=== PATIENT | female | born 1940 | race Caucasian/White ===

== ENCOUNTER 2025-06-17 09:38 | Observation (INO) ==
--- NOTE | 2025-06-15 09:48 | Anesthesiology Consultation ---
Date of Service June 15, 2025 Assessment & Plan (1) Encounter for pre-operative examination: - awaiting cardiology ordered echocardiogram and final pre-op determination. - cardiology clearance 06/13/25: "...preoperative cardiac clearance...denies associated chest pain, cough, diaphoresis, dizziness...abnormal EKG...cardiac murmur...intermediate cardiovascular risk (hysterectomy)...over the past 30 days there has been no active cardiovascular conditions...activities above 4 METS...most recent transthoracic echocardiogram on 01/29/2010 demonstrates normal LV chamber size and systolic function with an EF of 60%. 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 Chart Review Chart Review: Pending: Refer to Additional Notes / Consult section and Patient NOT seen in Pre Admission Testing History Surgery Operation Date: 06/17/25 07:30 Proposed Procedures p Robotic assisted Hysterectomy and Bilateral Salpingo-Oophorectomy, Sacral Colpopexy, Possible Mid-Urethral Sling, Cystoscopy - Tye Flanagan MD Height/Weight Height: 5 ft 4.5 in Weight: 64.41 kg Allergies Allergy/AdvReac Type Severity Reaction Status Date / Time methylprednisolone Allergy makes her Verified 06/08/25 12:50 [From Medrol] very drowsy/tired Medications Home Medications Medication Instructions Recorded Confirmed Last Taken artificial tears(hypromellose) 0.3 1 drp ophthalmic (eye) UD PRN Dry 06/08/25 06/08/25 Unknown % eye drops Eyes levothyroxine 112 mcg tablet 112 mcg PO QAM 06/08/25 06/08/25 Unknown multivitamin 1 tab PO QAM 06/08/25 06/08/25 Unknown Past Medical History Medical History (Updated 06/15/25 @ 09:42 by Yasemin Rm PA-C) Dry eyes History of hypothyroidism Hx of gastroesophageal reflux (GERD) no current meds, occasionally occurs Hx of migraines related to menstrual cycle Hx-TIA (transient ischemic attack) "told she's had multiple over the years, seen on imaging, never had to see neurology" Slow to wake up after anesthesia only w/ T&A sx. (when they used ether per pt) Past Surgical History Surgical History History of esophagogastroduodenoscopy (EGD) History of Ravi fundoplication (11/14/14) w/epiglottis repair History of tonsillectomy and adenoidectomy age 9 Hx laparoscopic cholecystectomy (07/09/17) Hx of bilateral cataract extraction 08/2020 Hx of colonoscopy Social History Smoking Status: Never smoker Do You Dip or Chew Tobacco: No Hx Alcohol Use: Yes Alcohol type: wine and hard liquor alcohol intake frequency: holidays/special occasions only Hx Substance Use: No substance use type: does not use Lab Results Anesthesia Preop Results Results Anesthesia Widget: WBC 6.15 K/ul (4.8-10.8) 06/10/25 Hgb 13.1 g/dl (12.0-16.0) 06/10/25 Hct 39.8 % (37.0-47.0) 06/10/25 Plt 192 K/uL (130-400) 06/10/25 Na 142 mmol/L (136-145) 06/10/25 K 3.9 mmol/L (3.5-5.1) 06/10/25 Cl 108 mmol/L (98-107) H 06/10/25 CO2 27 mmol/L (21-32) 06/10/25 BUN 16 mg/dl (6-23) 06/10/25 Creat 0.61 mg/dl (0.6-1.2) 06/10/25 Glucose Level 88 mg/dl (70-99(Fasting)) 06/10/25 Blood Type A Positive 06/10/25 Antibody Screen NEGATIVE 06/10/25 Testing Electrocardiogram Date: 06/03/25 Sinus bradycardia with first degree AV block, rate 58 bpm Marked left axis deviation LVH and ST-T change Possible anteroseptal [place], indeterminate age
--- NOTE | 2025-06-17 05:38 | History & Physical Report ---
Date of Service June 17, 2025 Assessment & Plan (1) Uterovaginal prolapse, incomplete: Plan: Reviewed the severe cystocele, uterine prolapse. She has tried several pessaries and now desires surgery. We reviewed colpocleisis vs transvaginal reconstruction vs robotic surgery. She prefers robotic hysterectomy, BSO, Sacral colpopexy with mesh, and cystoscopy. Risks of infection, bleeding, injury, pain, mesh exposure, incontinence, retention were reviewed. All questions answered. Informed consent signed Present on Admission?: Yes Admission and Anticipated Discharge Date Admission Date: 06/17/2025 Anticipated date of discharge: 06/18/25 History of Present Illness Chief Complaint: prolapse Primary Care Provider: Tye Flanagan MD Loretta Zuñiga has been trying several pessaries which has not completely resolved her prolapse issues. She has tried ring pessaries, but the bladder prolapse will often slide past the pessary. She also had issues with vaginal irritation from the pressure of the larger pessaries (#7 ring). She is currently using a Gelhorn pessary, but the bladder prolapse is still sliding past it. Urinary: Leakage: Urge Has leakage three times Wears pads: no She has occasional sense of incomplete bladder emptying. Prior/current treatment include: none UTI: She states she has had three urinary tract infections in the past year Voiding detail: Daytime frequency: every 2-3 hours Urgency yes Nocturia:3-4 times Hesitancy no Straining no Hematuria no Postvoid dribbling no Postvoid urgency no Manual reduction no Prolapse: She admits a palpable bulge. GI: Bowel habits: normal bowel movement daily She denies fecal incontinence. Prior/ current treatments include: none Allergies Allergy/AdvReac Type Severity Reaction Status Date / Time methylprednisolone Allergy makes her Verified 06/08/25 12:50 [From Medrol] very drowsy/tired Home Medications Medication Instructions Recorded Confirmed Type artificial tears(hypromellose) 0.3 1 drp ophthalmic (eye) UD PRN Dry 06/08/25 06/08/25 History % eye drops Eyes levothyroxine 112 mcg tablet 112 mcg PO QAM 06/08/25 06/08/25 History multivitamin 1 tab PO QAM 06/08/25 06/08/25 History Past Med/Surg History Problem List (Updated 06/17/25 @ 05:36 by Tye Flanagan MD) Uterovaginal prolapse, incomplete Encounter for pre-operative examination Medical History Slow to wake up after anesthesia only w/ T&A sx. (when they used ether per pt) Hx of gastroesophageal reflux (GERD) no current meds, occasionally occurs Hx of migraines related to menstrual cycle Hx-TIA (transient ischemic attack) "told she's had multiple over the years, seen on imaging, never had to see neurology" Dry eyes History of hypothyroidism Surgical History History of esophagogastroduodenoscopy (EGD) Hx of colonoscopy History of Ravi fundoplication (11/14/14) w/epiglottis repair Hx laparoscopic cholecystectomy (07/09/17) Hx of bilateral cataract extraction 08/2020 History of tonsillectomy and adenoidectomy age 9 Social History Smoking Status: Never smoker Second Hand Exposure: Yes (hx growing up); Do You Dip or Chew Tobacco: No; Tobacco Cessation Education Requested by Patient: No Hx Alcohol Use: Yes Alcohol type: wine and hard liquor Hx Substance Use: No Preferred Language: Mauritanian Communication Ability: Effective Vacuum Metalizer Operator Required: No Beliefs That Will Affect Care: None Current Living Situation: Alone Other Information That Helps Us Care for You: No Feels Safe at Home: Yes Safety Concerns: Feels Safe At This Time Assistive Devices: Denture - Upper, Denture - Lower and Glasses Assistive Devices Comment: partial lower denture Review of Systems Review of Systems: All systems reviewed & are unremarkable except as noted in HPI & below Physical Exam Constitutional: WD/WN, vitals as above Eyes: PERRL, conjunctivae normal, anicteric sclerae Neck: trachea midline, no thyromegaly Respiratory: normal respiratory effort, lungs clear to auscultation Cardiovascular: RRR, no murmur, no edema Gastrointestinal (Abdomen): normal bowel sounds, soft, nontender, no hepatosplenomegaly Musculoskeletal: no cyanosis or clubbing, extremities motor strength 5/5 Skin: no rashes, warm and dry Neurologic: patellar DTR's 2+ bilat, sensation intact Psychiatric: A+Ox3, euthymic affect Code Status & VTE Plan VTE Prophylaxis Plan VTE Prophylaxis will be ordered: Yes
[~2025-06-17 09:38] MED LIST: LIDOCAINE 2% 2 ML VIAL/AMP(20MG/ML) INFIL ONE; PROPOFOL IV EMULSION 10 MG/ML 20 ML VIAL IV ONE; ROCURONIUM BROMIDE 10 MG/ML 5 ML VIAL IV ONE
[2025-06-17] MEDS: LR 15ML/HR IV SCH (10:15)
[2025-06-17] MEDS: metroNIDAZOLE 500 MG/100 ML BAG IV SCH (10:30)
[2025-06-17] MEDS ORDERED: PROMETHAZINE HCL 6.25 MG in SODIUM CHLORIDE 0.9% 50 ML IV PRN (10:37)
[2025-06-17] MEDS ORDERED: ONDANSETRON INJ 2 MG/ML 2 ML VIAL IV PRN ×2 (10:37→13:34)
[2025-06-17] MEDS ORDERED: FLUMAZENIL 0.1 MG/1 ML 10 ML VIAL IV PRN (10:37)
[2025-06-17] MEDS ORDERED: NALOXONE HCL 0.4 MG/1 ML VIAL/CARP IV PRN (10:37)
[2025-06-17] MEDS ORDERED: ATROPINE SULFATE 0.1 MG/ML 10ML SYR IV PRN (10:37)
[2025-06-17] MEDS ORDERED: LABETALOL HCL IV 5 MG/ML 20ML IV ONE (11:06)
[2025-06-17] MEDS ORDERED: HYDROmorphone INJ 2 MG/ML SYR/VIAL ONE (11:26)
[2025-06-17] MEDS ORDERED: GLYCOPYRROLATE 0.2 MG/ML VIAL ONE (11:35)
[2025-06-17] MEDS ORDERED: PHENYLEPHRINE 100MCG/ML 5ML SYR ONE (11:41)
[2025-06-17] MEDS ORDERED: PHENYLEPHRINE HCL 10 MG/ML VIAL ONE (11:43)
[2025-06-17] MEDS ORDERED: ONDANSETRON INJ 2 MG/ML 2 ML VIAL ONE ×2 (11:49→12:44)
[2025-06-17] MEDS ORDERED: DEXAMETHASONE SOD INJ 4 MG/ML VIAL ONE (11:49)
[2025-06-17] MEDS ORDERED: KETAMINE HCL 10MG/ML SYR ONE (11:53)
[2025-06-17] MEDS ORDERED: ACETAMINOPHEN 1000 MG/100 ML IV IV ONE (12:03)
[2025-06-17] MEDS ORDERED: SUGAMMADEX SODIUM 200 MG/2 ML VIAL IV ONE ×2 (12:44)
[2025-06-17] MEDS: LIDOCAINE 1%/EPINEPHRINE 1:100,000 50 ML VIAL ONE (12:55)
[2025-06-17] MEDS: BUPIVACAINE LIPOSOME 1.3% 266 MG/20 ML VIAL ONE (12:55)
[2025-06-17] MEDS: BUPIVACAINE 0.5 % 5 MG/1 ML MPF 30ML VIAL ONE (12:55)
[2025-06-17] MEDS: PREMARIN VAG CRM 14 APPLN/30 GM TUBE ONE (13:20)
--- NOTE | 2025-06-17 13:37 | Operative Report ---
Post Operative Report Pre & Post Diagnosis Operation Date: 06/17/25 10:50 Pre-Op Diagnosis: Cystocele, Ureterovaginal Prolapse Post-Op Diagnosis: Cystocele, Ureterovaginal Prolapse, Urethral hypermobility, KIA I identified the patient and participated in the time-out.: Yes Procedure Operation Date: 06/17/25 10:50 Actual Procedures p Robotic Assisted Hysterectomy and Bilateral Salpingo-Oophorectomy, Sacral Colpopexy, Cystoscopy, Mid-Urethral Sling(Bilateral) - Tye Flanagan MD Surgeon Tye Flanagan MD Credit Rating Checker Hina Scruggs PA-C Estimated Blood Loss 30 Findings Consistent with Post-Op Diagnosis grade 3 cystocele, grade 3 uterine prolapse. Normal appearing cervix,uterus, tubes, and ovaries. Normal cystoscopy with excellent efflux of ureters bilaterally. Fluids crystalloid Specimens cervix, uterus, tubes,and ovaries Drains Mahoney catheter Anesthesia Type General Complications none Disposition Accompanied Patient To Recovery: Yes Disposition: Recovery Room Indications symptomatic uterovaginal prolapse, failure of pessary therapy. Description of Procedure After Loretta Zuñiga was correctly identified in the preoperative area, the indications,risks,benefits, and alternatives were reviewed in detail. All questions answered and informed consent was confirmed. Patient was taken to the operating room and given general anesthesia per anesthesia service. She was prepped and draped in the usual sterile fashion. Time out was performed. A Mahoney catheter was placed for clear urine. The cervix was serially dilated and medium cup v-care uterine manipulator was attached. At the umbilicus, an 8 mm incision was made and an 8mm robotic trocar with Optiview was advanced through the incision,past the fascia and peritoneum and into the abdominal cavity without difficulty. CO2 gas was used to insufflate the abdomen. Inspection revealed omental adhesions to the anterior abdominal wall. Two 8mm trocars were placed on the left and two 8mm trocars were placed on the right under direct visualization. The omental adhesions were taken down sharply with excellent hemostasis. Patient was placed in Trendelenburg position to allow the bowel to retract out the pelvis. The robot was docked. The ureters were well visualized bilaterally. The IP ligament was vessel sealed and transected bilaterally. The round ligaments were vessel sealed and transected bilaterally. The bladder was dissected off the cervix. The uterine vessels were dissected from the broad ligament, vessel sealed and transected bilaterally for excellent hemostasis. The colpotomy incision was made following the cervical cup. The cervix, uterus, t ubes, and ovaries were delivered out the vagina and sent to pathology as specimen. The vaginal cuff was closed with 0 V-lock suture in a running fashion in two layers. The bladder was dissected off the anterior vaginal wall for 6 cm distally. The posterior peritoneum was dissected off the posterior vaginal wall for 8 cm distally. The peritoneum overlying was incised. The incision was extended along the right deanna-colic gutter with excellent visualization of the right ureter and rectum. The anterior longitudinal ligament was well visualized below the sacral promontory. The Y mesh was secured to the posterior and anterior vaginal figueroa with 2-0 V- lock suture. The tail end of the y mesh was secured to the anterior longitudinal ligament below the sacral promontory with two interrupted sutures of 0 CVS suture. The peritoneum was closed over the mesh with 2-0 V-lock suture in a running fashion. Excellent hemostasis was confirmed. The robot was undocked and the trocars were removed under direct visualization and the skin incisions were closed with 4-0 Monocryl in a sub-cuticular fashion and dressed with surgical glue. Cystoscopy was performed with a 17 thai 70 deg cystoscope with 250 ml of irrigation fluid. Inspection or the bladder dome, trigone, and urethra revealed no lesions. Excellent efflux of each ureter bilaterally was demonstrated. Crede maneuver did reveal KIA. The Mahoney catheter was reinserted. The vaginal mucosa overlying the mid-urethra was grasped with 2 Allis clamps. The mucosa was infiltrated with 1% lidocaine with epinephrine. A midline vertical incision was made with the scalpel. The edges of the incision were grasped with Allis clamps and the deanna-urethral tissue was dissected sharply bilaterally. The Solyx single incision sling was assembled. The needle introducer was advanced through the incision toward the left pubic rami and into the obturator internus muscle. The other end of the sling was attached to the needle introducer, advanced through the incision toward the right pubic rami and inserted into the right obturator internus muscle. Cystoscopy was repeated with 250 ml of irrigation fluid. No lesions or perforations were visualized in the bladder dome, trigone, and urethra. The Mahoney catheter was reinserted. The incision was closed with 2-0 Vicryl in a running fashion. Excellent hemostasis was confirmed. Inspection of the vagina revealed excellent support, hemostasis, and good closure of the cuff. Estrogen cream was applied to the vagina. All sponge,lap, and needle counts were correct. The patient was awakened, extubated, and sent to recovery in good condition. No qualified resident was available. Hina Scruggs PA-C served as a necessary technical support assistant for patient positioning, draping, retraction, irrigation, robot docking, robot instrument exchange and wound closure. I attest to the content of the Intraoperative Record and any orders documented therein. Any exceptions are noted below.
[2025-06-17] MEDS ORDERED: ARTIFICIAL TEARS OP PRN (13:55)
--- NOTE | 2025-06-17 15:13 | Anesthesiology Progress Note ---
Date of Service June 17, 2025 Anesthesia Post Procedure Vital Signs Vital Signs: Temp Pulse Pulse Resp BP Pulse Ox O2 Del Method 06/17/25 15:05 78 15 134/70 96 Oxymask 06/17/25 14:55 75 21 146/81 H 95 Oxymask 06/17/25 14:45 75 16 152/82 H 95 Oxymask 06/17/25 14:35 75 24 151/81 H 95 Oxymask 06/17/25 14:25 78 17 141/86 H 91 Oxymask 06/17/25 14:15 75 20 136/78 95 Oxymask 06/17/25 14:05 75 11 L 144/82 H 97 Oxymask 06/17/25 13:55 78 18 152/98 H 97 Oxymask 06/17/25 13:45 75 16 166/91 H 97 Oxymask 06/17/25 13:35 36.0 C L 75 11 L 162/89 H 98 Oxymask 06/17/25 10:10 36.5 C 73 20 179/99 H 99 Room Air O2 Flow Rate 06/17/25 15:05 2 06/17/25 14:55 2 06/17/25 14:45 2 06/17/25 14:35 2 06/17/25 14:25 2 06/17/25 14:15 2 06/17/25 14:05 5 06/17/25 13:55 5 06/17/25 13:45 10 06/17/25 13:35 10 06/17/25 10:10 Transfer of Care Handoff Completed per policy Notes Mental Status: alert / awake / arousable Patient Amnestic to Procedure: Yes Nausea / Vomiting: adequately controlled Pain: adequately controlled Airway Patency, RR, SpO2: stable & adequate BP & HR: stable & adequate Hydration State: stable & adequate Anesthetic Complications: no major complications apparent
--- NOTE | 2025-06-17 15:29 | Electrocardiogram Report ---
Test Reason : Blood Pressure : */* mmHG Vent. Rate : 77 BPM Atrial Rate : 77 BPM P-R Int : 152 ms QRS Dur : 102 ms QT Int : 430 ms P-R-T Axes : * -43 148 degrees QTcB Int : 486 ms Sinus rhythm with Premature atrial complexes Left axis deviation Left ventricular hypertrophy with repolarization abnormality Poor R wave progression, consider anterior ND vs. lead placement vs. LVH Abnormal ECG No previous ECGs available Confirmed by Mac Godwin ([id number]) on 06/17/2025 3:28:41 PM Referred By: Tye Flanagan Confirmed By: Mac Godwin
[2025-06-17] MEDS: ACETAMINOPHEN 325 MG TAB PO PRN (20:12)
[2025-06-18] MEDS: IBUPROFEN 600 MG TAB PO PRN (06:11)
--- NOTE | 2025-06-18 06:33 | Gynecologic Progress Note ---
Date of Service June 18, 2025 Assessment & Plan (1) Uterovaginal prolapse, incomplete: Plan: POD#1 s/p robotic hysterectomy, BSO, sacral colpopexy, sling, and cystoscopy Present on Admission?: Yes Plan Patient doing well. Mahoney removed, bladder scan PVR Ambulate Anticipate discharge home Post op instructions reviewed. Patient will take Tylenol and/or Aleve for post op pain Admission and Anticipated Discharge Date Admission Date: June 17, 2025 Anticipated date of discharge: 06/18/25 Subjective Feeling well, Pain well controlled. Denies nausea, SOB or CP. Review of Systems Review of Systems: All systems reviewed & are unremarkable except as noted in HPI & below Physical Exam Constitutional: WD/WN, vitals as above Eyes: PERRL, conjunctivae normal, anicteric sclerae Neck: trachea midline, no thyromegaly Respiratory: normal respiratory effort, lungs clear to auscultation Cardiovascular: RRR, no murmur, no edema Gastrointestinal (Abdomen): normal bowel sounds, soft, nontender, no hepatosplenomegaly Incisions clean dry and intact Musculoskeletal: no cyanosis or clubbing, extremities motor strength 5/5 Skin: no rashes, warm and dry Neurologic: patellar DTR's 2+ bilat, sensation intact Psychiatric: A+Ox3, euthymic affect Results & Data Vital Signs (Past 12 Hours) Vital Signs Temp Pulse Resp BP Pulse Ox O2 Del Method 06/18/25 03:16 37 C 66 16 126/64 98 Room Air 06/17/25 22:44 36.6 C 62 18 128/71 95 Room Air 06/17/25 18:50 36.5 C 75 18 121/78 96 Room Air Laboratory Results Troponin WNL
--- NOTE | 2025-06-18 06:41 | Discharge Summary ---
Date of Service June 18, 2025 Admission HPI Per Admitting Provider Loretta Zuñiga has been trying several pessaries which has not completely resolved her prolapse issues. She has tried ring pessaries, but the bladder prolapse will often slide past the pessary. She also had issues with vaginal irritation from the pressure of the larger pessaries (#7 ring). She is currently using a Gelhorn pessary, but the bladder prolapse is still sliding past it. Urinary: Leakage: Urge Has leakage three times Wears pads: no She has occasional sense of incomplete bladder emptying. Prior/current treatment include: none UTI: She states she has had three urinary tract infections in the past year Voiding detail: Daytime frequency: every 2-3 hours Urgency yes Nocturia:3-4 times Hesitancy no Straining no Hematuria no Postvoid dribbling no Postvoid urgency no Manual reduction no Prolapse: She admits a palpable bulge. GI: Bowel habits: normal bowel movement daily She denies fecal incontinence. Prior/ current treatments include: none Admission Exam (Per Admitting) Constitutional WD/WN, vitals as above Eyes PERRL, conjunctivae normal, anicteric sclerae Neck trachea midline, no thyromegaly Respiratory normal respiratory effort, lungs clear to auscultation Cardiovascular RRR, no murmur, no edema Gastrointestinal (Abdomen) normal bowel sounds, soft, nontender, no hepatosplenomegaly Musculoskeletal no cyanosis or clubbing, extremities motor strength 5/5 Skin no rashes, warm and dry Neurologic patellar DTR's 2+ bilat, sensation intact Psychiatric A+Ox3, euthymic affect Discharge Data Procedures Performed Operation Date: 06/17/25 10:50 Actual Procedures p Robotic Assisted Hysterectomy and Bilateral Salpingo-Oophorectomy, Sacral Colpopexy, Possible Mid-Urethral Sling(Bilateral) - Tye Flanagan MD s Cystoscopy - Tye Flanagan MD Hospital Course (1) Uterovaginal prolapse, incomplete: POD#1 s/p robotic hysterectomy, BSO, sacral colpopexy, sling, and cystoscopy Plan Patient doing well. Mahoney removed, bladder scan PVR Ambulate Anticipate discharge home Post op instructions reviewed. Patient will take Tylenol and/or Aleve for post op pain
[2025-06-18 06:50] LABS: Hematocrit (blood only) 32.9 % (37.0-47.0); Hemoglobin 11.2 g/dl (12.0-16.0); Immature Granulocytes # (auto) 0.06 K/uL (0.01-0.20); Immature Granulocytes % (auto) 0.5 %; Mean Corpuscular Hemoglobin 29.9 pg (25.0-34.0); Mean Corpuscular Volume 88.0 fL (80.0-100.0); Platelet Count 186 K/uL (130-400); RDW Standard Deviation 43.1 fL (36.4-46.3); Red Blood Count 3.74 M/uL (4.20-5.40); White Blood Count 11.78 K/ul (4.8-10.8)
[2025-06-18] MEDS: LEVOTHYROXINE SODIUM 112 MCG TABLET PO SCH (07:18)
[2025-06-18 07:24] LABS: Anion Gap 7.0 (3-11); Blood Urea Nitrogen 16.0 mg/dl (6-23); Calcium 9.2 mg/dl (8.6-10.3); Carbon Dioxide 26.0 mmol/L (21-32); Chloride 104.0 mmol/L (98-107); Creatinine Clr Calc Pharmacy 72.2 ml/min; Glucose 99.0 mg/dl (70-99(Fasting)); Potassium 4.1 mmol/L (3.5-5.1); Sodium 137.0 mmol/L (136-145)
[2025-06-18] MEDS: MULTIVITAMIN TAB PO SCH (10:02)
== END 2025-06-18 13:45 | disposition home or self-care (01) ==
LOC: ASU 09:38 → PACUINP 09:38 → 4E1 17:20